=== PATIENT | female | born 1965 | race Two or more races ===

== ENCOUNTER 2025-02-27 07:30 | Day surgery (SDC) | payer OTHER ==
[2025-02-27] MEDS ORDERED: CEFAZOLIN SODIUM 1,000 MG VIAL ONE (08:18)
== END 2025-02-27 11:05 | disposition home or self-care (01) ==
LOC: CIR.AMB 07:30
PROVIDERS: ATTEND Surgery Surgery of the Hand
DX: M67.442 Ganglion, left hand (principal); D21.22 Benign neoplasm of connective and other soft tissue of left lower limb, including hip